=== PATIENT | female | born 2000 | race Caucasian/White ===

== ENCOUNTER → 2023-01-29 19:42 | Outpatient (CLI) | payer OTHER, SELFPAY ==
--- NOTE | 2023-01-29 19:44 | DI.MRI.S_ITS ---
PROCEDURE: MR ANKLE RT WO CON INDICATIONS: RT ANKLE PAIN TECHNIQUE: Noncontrast sagittal T1 spin echo and T2 fast spin echo with fat saturation, axial proton density fast spin echo and T2 fast spin echo with fat saturation, coronal T1 spin echo and T2 fast spin echo with fat saturation through the ankle/hindfoot. COMPARISON: None. FINDINGS: Image quality: Excellent. Bones and joints: No bone marrow contusions or fractures. No hindfoot coalitions. No osteochondral injuries of the talar dome. Nonspecific subcortical cystic area involving posterior superior calcaneus near Achilles tendon insertion. Similar nonspecific cystic area is also seen involving posterior inferior talus. Small amount of tibiotalar joint effusion is seen, no gross loose bodies. Medial structures: The posterior tibialis tendon is thickened with intrasubstance T2 hyperintense signal at the level of distal talus and talonavicular joint. The flexor digitorum longus, and flexor hallucis longus tendons are intact. The posterior tibial neurovascular bundle appears normal within the tarsal tunnel, without extrinsic mass effect. Thickening of the fibers of deltoid ligament is seen. The superficial fibers are intact. The spring ligament complex is intact. Lateral structures: The anterior talofibular, calcaneofibular, and posterior talofibular ligaments appear intact. More superiorly, the anterior and posterior tibiofibular ligaments appear thickened. The tibiofibular syndesmosis is normal in width at 2 mm or less. The peroneus longus and brevis tendons demonstrate normal location and morphology. Adjacent bony peroneal tubercle and retrotrochlear prominence are normal in size. The sinus tarsi demonstrates normal fatty signal, without edema, fibrosis, or cyst formation. Visualized sinus tarsi components (cervical ligament, interosseous talocalcaneal ligament, roots of the inferior extensor retinaculum) appear normal. The calcaneonavicular and calcaneocuboid components of the bifurcate ligament appear intact. The dorsal calcaneocuboid ligament appears intact. Anterior structures: The tibialis anterior, extensor hallucis longus, and extensor digitorum longus tendons appear intact. The dorsal talonavicular ligament appears intact. Posterior and plantar structures: Achilles tendon is intact. Medial and lateral bands of the plantar fascia appears thickened with surrounding soft tissue edema. No abductor digiti quinti muscle atrophy to suggest Giradlo neuropathy. IMPRESSION: 1. No marrow edema. No fracture or dislocation. No osteochondral injuries of talar dome. Nonspecific intraosseous/subcortical cystic changes are seen in posterior inferior talus and posterior superior calcaneus. 2. Tendinosis and low-grade intrasubstance partial-thickness tear involving posterior tibialis tendon at the level of distal talus and talonavicular joint. 3. Low-grade sprain involving deep fibers of deltoid ligament. 4. Low to moderate grade anterior and posterior tibial fibular ligament sprain. 5. Very mildly thickened plantar fascia at its calcaneal insertion suggestive of very low-grade plantar fasciitis. Dictated by: Emory Sweeney M.D. on 01/30/2023 at 10:10 Approved by: Emory Sweeney M.D. on 01/30/2023 at 10:47
== END ==
PROVIDERS: Referring Provider Podiatrist; Visit Provider Podiatrist
DX: S93.401A Sprain of unspecified ligament of right ankle, initial encounter (principal); M72.2 Plantar fascial fibromatosis
CPT/HCPCS: 73721